=== PATIENT | male | born 1990 | race Caucasian/White ===

== ENCOUNTER 2023-06-09 14:15 | Outpatient (OUT) | payer BC, SELFPAY ==
--- NOTE | 2023-06-09 14:32 | XR_ITS ---
The [address] [address] Patient Name: CRISTEL BUI MRN: [id number] date: 1990 Sex: M Assigned Patient Location: RAD Current Patient Location: RAD Accession/Order Number: [id number] Exam Date: 06/09/2023 14:29 Report Date: 06/09/2023 16:03 At the request of: SELINA YO Procedure: XR chest 2V EXAM: Chest x-ray HISTORY: . Exercise Induced Asthma J45.990 . COMPARISON: None. TECHNIQUE: Frontal and lateral chest FINDINGS: Heart and vascularity are unremarkable. Lungs are free of focal infiltrates. There is a slight scoliotic deformity of the spine with convexity to the right. XR/XR chest 2V IMPRESSION: No acute heart or lung disease identified. Electronically authenticated by: NARENDRA URIBE Date: 06/09/2023 16:03
== END 2023-06-09 14:16 | disposition home or self-care (01) ==
LOC: RAD 14:19
PROVIDERS: PCP Family Medicine; Visit Provider Family Medicine
DX: J45.990 Exercise induced bronchospasm (principal)
CPT/HCPCS: 71046